=== PATIENT | male | born 1940 | race Caucasian/White ===

== ENCOUNTER 2018-04-25 19:01 | Inpatient (IN) | payer MEDICARE ==
--- NOTE | 2018-04-25 21:40 | ULT ---
RIGHT UPPER QUADRANT ULTRASOUND: 04/25/18 INDICATION: Increased blood pressure and patient not feeling well. COMPARISON: CT of the abdomen and pelvis from [facility] dated 04/25/18. FINDINGS: There is mild distention of the gallbladder with gallbladder wall thickening and pericholecystic amelia a. No sonographic Milian's sign is reported. The common bile duct measured up to 8.6 mm which is prominent. The pancreas is obscured. The right ki dney measures 10.4 cm in length. No hydronephrosis is evident. No focal hepatic lesion is noted. IMPRESSION: 1. Gallbladder distention without visible stones. There is gallbladder wall thickening and peric holecystic edema. No sonographic Milian's sign is reported. Findings are equivocal for acute acalculo us cholecystitis. Recommend correlation with the patient's clinical examination. 2. Dilatation of the common bile duct up to 8.6 mm is slightly more pronounced for age. A distal obstructing process within the common bile cannot be entirely excluded. No definite intrahepatic jesse iary ductal dilatation is noted. 3. If clinically indicated, further evaluation with an MRCP may be helpful to evaluate the dista l common bile duct. No visible stone or obstructing process is evident on the recent CT examination d ated 04/25/18. Alternatively, HIDA scan may be helpful to evaluate for cystic duct obstruction as wel l as common bile duct obstruction. POS: [facility]
[2018-04-25] MEDS ORDERED: Ondansetron PF 4 MG/2 ML Vial IVP PRN (22:58)
[2018-04-25] MEDS ORDERED: Dextrose 50% Abboject 50 ML SYRINGE SLOW IVP PRN (22:58)
[2018-04-25] MEDS ORDERED: HumaLOG 300 UNITS/3 ML VIAL SC PRN (22:58)
[2018-04-25] MEDS ORDERED: Dextrose 5% in Water 1,000 ML IV PRN (22:58)
[2018-04-25] MEDS ORDERED: hydrALAZINE 20 MG/ML VIAL SLOW IVP PRN (22:58)
[2018-04-25] MEDS ORDERED: Ondansetron ODT 4 MG TAB PO PRN (22:58)
--- NOTE | 2018-04-25 23:58 | RAD ---
TWO VIEWS CHEST 04/25/18 HISTORY: COPD. PA and lateral views of the chest is obtained. Cardiomegaly seen. Pulmonary vascular congestion is se en. No evidence of effusions, pneumonia or pneumothorax seen. IMPRESSION: Cardiomegaly and pulmonary vascular congestion. POS: [facility]
[2018-04-26] MEDS: Piperacillin/Tazobactam 3.375 GM in Sodium Chloride 0.9% 100 ML IVPB SCH ×5 (00:15→23:54)
[2018-04-26] MEDS: Lactated Ringer's 1,000 ML IV SCH ×3 (00:15→17:18)
[2018-04-26 00:25] LABS: HBCM Index 0.07 S/CO (0-0.79); Hep A IgM AB Non-Reactive (NonReactive); Hep A IgM S/CO 0.09 S/CO (0-0.79); Hep B Surf Ag Non-Reactive S/CO (NonReactive); Hep C IgG Ab Non-Reactive (NonReactive); Hep C Index 0.16 S/CO (0-0.79); Hepatitis B Core IgM Abs Non-Reactive (NonReactive)
[2018-04-26 01:46] VITALS: BMI 35.6
--- NOTE | 2018-04-26 04:11 | HP ---
HISTORY OF PRESENT ILLNESS: A 77-year-old male from [place]. He has worked for [employer], he is retired. He apparently presented to the hospital last , Danica adair for hypertension, medically controlled. He then reported again today for chills. He was noted to have abnormal liver function test, bilirubin 2.2, alk phos 240, AST 848, ALT 472. White count 4, hemoglobin 12. He had a CAT scan of abdomen and pelvis noted lumbar ORIF hardware, pericholecystic fluid, distended gallbladder, dilated bile duct. He was transferred to [facility] where he underwent an ultrasound of an 8.6 mm bile duct. Negative sonographic Milian sign and no gallstones. Patient denies any past history of biliary symptoms. He reports he has had some mild nausea, but no other really symptoms. He has had normal colonoscopies in the past. ALLERGIES: CLINDAMYCIN, CELEBREX. TOBACCO: None since 1989. ALCOHOL: Rarely. MEDICATIONS: Metformin 500 b.i.d., atorvastatin 40 mg a day, Tylenol PM, Demadex 100 mg 1/2 tab p.r. n. leg swelling, Tylenol p.r.n., Centrum Silver, aspirin 81 mg daily, acid 40 mg a day, metform in 500 b.i.d., Spiriva handihaler every day for COPD, fluticasone nasal spray, CoQ10, fish oil, lactu lose 10 mg a day, MiraLax daily, fiber powder daily. PAST SURGICAL HISTORY: Prostatectomy, bilateral total knee replacements, lumbar surgery, ORIF, colonoscopy last year was normal. PAST MEDICAL HISTORY: Coronary artery disease, myocardial infarction in 2004, coronary artery stent placed, [facility] 2014, saw his casing trimmer, had a stress test that was normal. He is asympt omatic from a cardiac standpoint. Apparently, he had an echocardiogram yesterday in [place] report ing normal ejection fraction. Preliminary report, I do not have that, this is reported in the ER rec ords. No prior history of hypertension until when he was started on apparently clonidine. COPD. He does not use inhalers at home. Sleep apnea. He wears a CPAP. Diabetes mellitus type 2. History of prostate cancer. PHYSICAL EXAMINATION: VITAL SIGNS: Temperature 37.9, pulse 94, respiratory rate 18, blood pressure 114/62, oxygen saturati on 97%. HEENT: Unremarkable. Sclerae nonicteric. SKIN: Nonjaundiced. LUNGS: Clear to auscultation, no wheezing. CARDIAC: Regular rate and rhythm without murmur or gallop. ABDOMEN: Soft, distended, protuberant, nontender. Suprapubic midline incision consistent with prost atectomy. EXTREMITIES: Unremarkable. LABORATORIES: As noted above. ASSESSMENT AND PLAN: 1. History of chills, currently afebrile, dilated common bile duct 8.6 mm, elevated bilirubin and tr ansaminases. We will consult Gastroenterology, Dr. Peterson and discuss this case with him. We will o btain a HIDA scan tomorrow without ejection fraction. We will repeat his liver function tests. We w ill keep him on antibiotics in case there is early cholangitis. We will make further recommendations pending studies. He may need an ERCP. Possibly, cholecystectomy is uncertain at this time. 2. Diabetes mellitus type 2. Accu-Cheks. 3. Coronary artery disease, stable. He has appointment to see a casing trimmer in the next few days t o a week encouraged by his primary care physician, Dr. Aguilar in [place] to follow up his coronary art douglas disease, asymptomatic from a cardiac standpoint. 4. Sleep apnea. 5. Chronic obstructive pulmonary disease. 6. History of tobacco abuse. 7. Status post open reduction and internal fixation of lumbar spine.
[2018-04-26 05:15] LABS: #Lymphocytes 0.6 thou/uL (1.20-3.40); #Monocytes 0.6 thou/uL (0.11-0.59); #Neutrophils 10.4 thou/uL (1.40-6.50); %Basophils 0.3 % (0.0-1.0); %Eosinophils 0.2 % (0.0-10.0); %Lymphocytes 5.1 % (21.0-51.0); %Monocytes 4.9 % (0.0-10.0); %Neutrophils 89.5 % (42.0-75.0); Hemoglobin 11.5 g/dL (14.0-18.0); Mean Corpuscular HGB CONC 32.9 g/dL (32.0-36.0); Mean Corpuscular Hemoglobin 31.8 pg (27.0-31.0); Mean Corpuscular Volume 96.7 fL (78.0-98.0); Mean Platelet Volume 7.4 fL (7.4-10.4); Platelet Count 136 thou/uL (130-400); RBC Distribution Width 12.1 % (11.5-14.5); Red Blood Cell (RBC) Count 3.62 mill/uL (4.70-6.10); White Blood Cell (WBC) Count 11.6 thou/uL (4.8-10.8)
[2018-04-26 05:18] LABS: INR-International Normal Ratio 1.2; PTT 28.6 SEC (22.9-36.1); Prothrombin Time 14.8 SEC (12.0-14.7)
[2018-04-26 05:30] LABS: ALT (SGPT) 992 U/L (8-55); AST (SGOT) 950 U/L (5-34); Albumin 3.5 g/dL (3.4-4.8); Alkaline Phosphatase 214 U/L (40-150); Anion Gap 13 mmol/L (10-20); BUN (Urea Nitrogen) 28 mg/dL (8.4-25.7); Bilirubin, Total 3.8 mg/dL (0.2-1.2); Calc. Creatinine Clearance 50 mL/min (70-130); Calcium 8.6 mg/dL (7.8-10.44); Carbon Dioxide 22 mmol/L (23-31); Chloride 107 mmol/L (98-107); Estimated GFR-MDRD 33; Globulin 2.7 g/dL (2.4-3.5); Glucose 129 mg/dL (83-110); Potassium 4.1 mmol/L (3.5-5.1); Protein, Total 6.2 g/dL (5.8-8.1); Sodium 138 mmol/L (136-145)
[2018-04-26] MEDS: Famotidine/PF 20 mg/2ml Vial SLOW IVP SCH ×2 (09:13→21:36)
[2018-04-26] MEDS ORDERED: Glycopyrrolate 0.2 MG/ML 5 ML SYRINGE ONE (13:50)
[2018-04-26] MEDS ORDERED: PROPOFOL 200 MG/20 ML VIAL ONE (13:50)
[2018-04-26] MEDS ORDERED: PHENYLEPHRINE-NS 100 MCG/ML 10 ML SYRINGE ONE (13:50)
[2018-04-26] MEDS ORDERED: Lidocaine 1% PF 5 ML VIAL ONE (13:50)
[2018-04-26] MEDS ORDERED: Ondansetron PF 4 MG/2 ML Vial ONE (13:50)
--- NOTE | 2018-04-26 13:52 | CON ---
DATE OF CONSULTATION: 04/26/2018 HISTORY OF PRESENT ILLNESS: The patient is a 77-year-old gentleman who was in his normal state of he alth until one day prior to admission when he developed significant fever and chills. He did have so me nausea and vomiting but denies any recent weight loss. It was noted he had a distended gallbladde r and some pericholecystic fluid and had a gallbladder without stones. Common bile duct was somewhat dilated. He denies much pain. PAST MEDICAL HISTORY: Significant for diabetes mellitus, coronary artery disease, myocardial infarct ion, coronary artery stent placement, COPD, sleep apnea, prostate cancer. PAST MEDICAL HISTORY: Prostatectomy, total knee replacement, lumbar surgery, ORIF, colonoscopy. MEDICATIONS: Included Uloric 1 p.o. daily, aspirin 1 p.o. daily, eyedrops, fish oil 1 capsule p.o. b .i.d., multivitamin 1 p.o. daily, Demadex 50 mg p.o. daily, Spiriva 1 spray every day, CoQ10 one p.o. daily, Catapres 0.1 mg p.o. t.i.d. p.r.n., metformin 500 mg p.o. b.i.d., atorvastatin 40 mg p.o. at bedtime. ALLERGIES: Include CELEBREX and CLINDAMYCIN. SOCIAL HISTORY: Does not smoke or drink. FAMILY HISTORY: Negative for GI or liver disease. PHYSICAL EXAMINATION: CONSTITUTIONAL: Positive for fever and chills. Negative for weight loss. EYES: No blurred vision or double vision. ENT: No sore throat or earaches. CARDIOVASCULAR: No chest pain or palpitations. PULMONARY: No shortness of breath, cough, or wheeze. GI: See above. : No hematuria or dysuria. MUSCULOSKELETAL: No joint pain or muscle weakness. SKIN: No rashes. NEUROLOGIC: No numbness or seizure activity. PHYSICAL EXAMINATION: GENERAL: Shows a well-developed, well-nourished white male, in no acute distress. VITAL SIGNS: Temperature 97.9, pulse 73, respiratory rate 20, blood pressure 138/76. HEENT: Unremarkable. NECK: Supple. CHEST: Clear. CARDIOVASCULAR: Regular rate and rhythm. ABDOMEN: Soft, nontender, without organomegaly or masses. EXTREMITIES: Normal. NEUROLOGIC: Nonfocal. LABORATORY DATA: Shows a white blood cell count of 11.6, hemoglobin 11.5, hematocrit 35.1. PT is 14 .8 with an INR of 1.2. Chemistries significant for CO2 of 22, BUN 28, creatinine 1.96, glucose 129, total bilirubin , AST 958, ALT 992, alkaline phosphatase 214. Hepatitis panel was negative. Ab dominal ultrasound shows gallbladder distention without visible stones. The wall is thickened with p ericholecystic edema, dilatation of the common bile duct up to 8.6 mm in size. ASSESSMENT: 1. Acute cholecystitis. 2. Cholestasis with enlarged common bile duct - this may be red cells all secondary to the patient's acute cholecystitis or he may indeed have common duct stones. I think the best approach at this blank e would be to proceed with cholecystectomy and then perform an intraoperative cholangiogram. RECOMMENDATIONS: Proceed with cholecystectomy followed by intraoperative cholangiogram and if needed ERCP.
--- NOTE | 2018-04-26 15:24 | NM ---
HEPATOBILIARY SCAN: Date: 04/26/18 HISTORY: Elevated LFTs, fever, chills, and vomiting. Abnormal right upper quadrant ultrasound. RADIOPHARMACEUTICAL: 5.2 mCi technetium-99m mebrofenin injected intravenously. FINDINGS/IMPRESSION: There is tracer extraction by the liver without excretion into the biliary tract/small bowel loops, o r filling of the gallbladder at 1 hour post injection. The exam was terminated and the patient was taken to surgery. Delayed images could not be obtained. T he possibility of biliary obstruction or acute cholecystitis cannot be excluded on this study. POS: [facility]
--- NOTE | 2018-04-26 15:46 | PRG ---
DATE OF SERVICE: 04/26/2018 Osvaldo Rizo Jr. today, still is not having much pain. He has been afebrile overnight. His vital sig ns are normal, 73, 138/76. This morning his white count 11, hemoglobin 11.5. His bilirubin is up to 3.8. AST, ALT 59 and 92 respectfully. Patient had his HIDA scan with nonvisualization of the gallb ladder and no epinephrine into the GI tract. Abdomen is soft. The patient denies having any pain. I have discussed with Dr. Akin Hartmann, who has seen him for Gastroenterology and will plan laparoscopi c cholecystectomy and cholangiogram today Dr. Hartmann will be available to do an ERCP. Risks and benefits of procedure explained. He consents.
[2018-04-26] MEDS ORDERED: Ondansetron HCl/PF 4 MG/2 ML Vial IVP PRN (15:54)
[2018-04-26] MEDS ORDERED: Fentanyl 100 MCG/2 ML VIAL ONE ×5 (16:04→20:20)
[2018-04-26] MEDS ORDERED: Bupivacaine HCl 0.5%/Epinephrine 1:200,000/PF 30 ml Vial ONE (16:37)
[2018-04-26] MEDS ORDERED: Iothalamate Meglumine 60% 50 ML VIAL FS ONE (16:37)
[2018-04-26] MEDS ORDERED: Lidocaine 2% Jelly 5 ML TUBE ONE (16:46)
[2018-04-26] MEDS ORDERED: SUGAMMADEX SODIUM 200 MG/2 ML VIAL ONE (18:35)
[2018-04-26] MEDS ORDERED: Acetaminophen 500 MG TAB PO PRN ×3 (18:42→18:45)
[2018-04-26] MEDS ORDERED: Ketorolac Tromethamine 30 MG/ML VIAL IVP PRN (18:42)
[2018-04-26] MEDS ORDERED: Acetaminophen 1,000 MG in Premix Bag 1 BAG IVPB PRN (18:42)
[2018-04-26] MEDS ORDERED: Ibuprofen 800 MG TAB PO PRN (18:42)
[2018-04-26] MEDS ORDERED: traMADol HCl 50 MG TAB PO PRN (18:42)
[2018-04-26] MEDS ORDERED: Ondansetron ODT 8 MG TAB PO PRN ×2 (18:45)
[2018-04-26] MEDS ORDERED: Nitroglycerin 0.4 MG TAB (25 Tab Bottle) SL PRN (18:45)
[2018-04-26] MEDS ORDERED: Ondansetron ORAL SOLN. 4 MG/5 ML UDCUP PO PRN (18:45)
[2018-04-26] MEDS ORDERED: Ondansetron ODT 8 MG TAB SL PRN (18:45)
[2018-04-26] MEDS ORDERED: cloNIDine 0.1 MG TAB PO PRN (18:45)
[2018-04-26] MEDS ORDERED: diphenhydrAMINE 25 MG CAP PO PRN (20:14)
[2018-04-26] MEDS ORDERED: ALPHA LIPOIC ACID PO SCH (21:00)
--- NOTE | 2018-04-26 21:23 | OP ---
DATE OF PROCEDURE: 04/26/2018 PREOPERATIVE DIAGNOSES: Acute cholecystitis. No stones on ultrasound and CAT scan, thickened gallbl adder wall, pericholecystic fluid, negative sonographic Milian sign, 8.6 mm common bile duct on ultra sound, elevated liver function test, bilirubin of 3.6. Transaminases elevated, negative viral serolo gy. POSTOPERATIVE DIAGNOSES: Acute cholecystitis. No stones on ultrasound and CAT scan, thickened gallb ladder wall, pericholecystic fluid, negative sonographic Milian sign, 8.6 mm common bile duct on ultr asound, elevated liver function test, bilirubin of 3.6. Transaminases elevated, negative viral serol ogy. PROCEDURES: Laparoscopic video cholecystectomy, negative cholangiogram. SURGEON: Dr. Royce Noonan. ANESTHESIA: General. Local 0.5% Marcaine with epinephrine. PROCEDURE IN DETAIL: Patient was taken to the operating room where under general anesthesia, abdomen was prepared with ChloraPrep, draped in routine fashion. Supraumbilical incision made. Pneumoperit oneum to 15 mmHg obtained with the Veress needle, replacing it with a 5 port and video laparoscope in serted. Right subxiphoid incision made and 11 port placed. Right subcostal incision made, mid clavi cular anterior axillary lines and 5 ports placed. Gallbladder was distended, thickened wall, [place] us, fundus grasped, and reflected cephalad. Infundibulum of the gallbladder grasped and reflected la terally. Cystic artery and duct dissected free with great difficulty due to the morbid obesity and l arge gallbladder and firm liver. Liver, however, appeared normal without cirrhosis. Cystic artery d issected free, double clipped proximally. Cystic duct singly clipped on the gallbladder side. Openi ng made, cholangiocath inserted, and cholangiogram was obtained using fluoroscopy revealing free flow of contrast into the duodenum without a filling defect in the dilated common hepatic, common bile du ct, left and right hepatic ducts. Cholangiocath removed. Cystic duct stump doubly clipped. Cystic artery and duct divided. Gallbladder dissected free. Liver bed obtaining good hemostasis using caut douglas and Vimal. Gallbladder removed and submitted to Pathology. Good hemostasis ensured. Irrigant and pneumoperitoneum evacuated. All this instruments removed and all skin incisions approximated wit h interrupted subdermal 4-0 Monocryl and DermaGlue applied.
--- NOTE | 2018-04-26 21:24 | RAD ---
INTRAOPERATIVE CHOLANGIOGRAM TWO VIEWS ABDOMEN: 04/26/18 Two intraoperative images obtained and demonstrate catheterization and injection of the cystic duct. There is free flow of contrast into the common bile duct and common hepatic ducts. Spill is seen into the duodenum. There is a retrograde migration also in the distal pancreatic duct. The distal common bile duct is moderately dilated. No definite evidence of filling defect seen to suggest residual gall stones in the biliary system. IMPRESSION: Intraoperative cholangiogram. POS: [facility]
[2018-04-26] MEDS: Enoxaparin Sodium 40 MG/0.4 ML SYRINGE SC SCH (21:36)
[2018-04-26] MEDS: Ketorolac Tromethamine 0.5% Ophth Soln 3 ml Bottle EA EYE SCH (21:37)
[2018-04-26] MEDS: Fish Oil 1,000 MG CAP PO SCH (21:51)
[2018-04-27] MEDS: Lactated Ringer's 1,000 ML IV SCH ×3 (00:03→18:31)
[2018-04-27] MEDS: Ipratropium Bromide 2.5 ml Neb NEB SCH ×2 (00:47→07:41)
[2018-04-27 04:14] LABS: ALT (SGPT) 610 U/L (8-55); AST (SGOT) 396 U/L (5-34); Albumin 3.1 g/dL (3.4-4.8); Alkaline Phosphatase 175 U/L (40-150); Anion Gap 12 mmol/L (10-20); BUN (Urea Nitrogen) 32 mg/dL (8.4-25.7); Calc. Creatinine Clearance 49 mL/min (70-130); Calcium 8.5 mg/dL (7.8-10.44); Carbon Dioxide 26 mmol/L (23-31); Chloride 107 mmol/L (98-107); Estimated GFR-MDRD 33; Globulin 2.7 g/dL (2.4-3.5); Glucose 165 mg/dL (83-110); Protein, Total 5.8 g/dL (5.8-8.1); Sodium 141 mmol/L (136-145)
[2018-04-27 04:19] LABS: Band 33 % (5-11); Hemoglobin 10.5 g/dL (14.0-18.0); Lymphocytes 14 % (21-51); MDiff Complete? YES; Mean Corpuscular HGB CONC 33.5 g/dL (32.0-36.0); Mean Corpuscular Hemoglobin 32.4 pg (27.0-31.0); Mean Corpuscular Volume 96.8 fL (78.0-98.0); Mean Platelet Volume 8.1 fL (7.4-10.4); Monocytes 6 % (0-10); Neutrophil 47 % (42-75); PLT Morphology Comment Appears Adequate; Platelet Count 127 thou/uL (130-400); RBC Distribution Width 12.1 % (11.5-14.5); Red Blood Cell (RBC) Count 3.24 mill/uL (4.70-6.10); White Blood Cell (WBC) Count 9.4 thou/uL (4.8-10.8)
[2018-04-27] MEDS: Piperacillin/Tazobactam 3.375 GM in Sodium Chloride 0.9% 100 ML IVPB SCH ×3 (05:35→18:30)
--- NOTE | 2018-04-27 08:21 | PRG ---
DATE OF SERVICE: 04/27/2018 HISTORY OF PRESENT ILLNESS: Mr. Rizo is doing well this morning. He was sent to [facility] because of h ypertension and some respiratory difficulty. This morning; however, he is doing well. He has sleep apnea, he uses CPAP at home. This morning he is without oxygen and is saturating appropriately. The patient ambulates independently at home, goes to the gym 3 days a week at home. VITAL SIGNS: This morning, 97.7 degrees, heart rate 95, 149/95. The patient had an echocardiogram in [place] prior to this admission and preliminary report was a 6 5% ejection fraction with a formal report pending. LABORATORY: This morning his sodium is 141, potassium 4.0, BUN 32, creatinine 1.99, GFR 33. Accu-Ch eks 170 to 158. Bilirubin is elevated to 4.0, AST 396, ALT 610, and alkaline phosphatase 175. The patient denies having any nausea or vomiting. He is hungry. White count is 9.4, hemoglobin 10.5 . LUNGS: Clear to auscultation. CARDIAC: Regular rate and rhythm without murmur or gallop. ABDOMEN: Soft, baseline protuberance. Surgical wound is well healed. ASSESSMENT AND PLAN: 1. Diabetes mellitus. He has asked that his Accu-Cheks not be done so often as he only does these o nce a week at home. We will change his Accu-Cheks to a.c. and at bedtime. His liver function tests are elevated, slightly worse today, postoperatively which may be appropriate. His cholangiograms wer e normal. Viral serology, hepatitis profile negative. We will await GI opinion, most likely he may have some diastolic dysfunction and mild hepatic congestion, may be contributing along with acute cho lecystitis, although he did not have a gangrenous gallbladder. 2. Mild acute kidney injury. Continue hydration, repeat labs tomorrow. We will consult Medicine. We did consult Pulmonary Medicine last night because of his BiPAP needs and sleep apnea and periopera tive care. Expect discharge in the next 1 or 2 days. We will transfer to the surgical floor.
[2018-04-27] MEDS: Torsemide 100 MG TAB PO SCH (08:56)
[2018-04-27] MEDS: Febuxostat 40 MG TAB PO SCH (08:57)
[2018-04-27] MEDS: Atorvastatin Calcium 40 MG TAB PO SCH (08:57)
[2018-04-27] MEDS: Multivitamin W/ Minerals 1 TAB PO SCH (08:57)
[2018-04-27] MEDS: metFORMIN 500 MG TAB PO SCH ×2 (08:57→16:42)
[2018-04-27] MEDS: Aspirin 81 mg Enteric Coated Tablet PO SCH (08:57)
[2018-04-27] MEDS: Fish Oil 1,000 MG CAP PO SCH ×2 (08:57→20:23)
[2018-04-27] MEDS: Ketorolac Tromethamine 0.5% Ophth Soln 3 ml Bottle EA EYE SCH ×3 (09:00→20:23)
[2018-04-27] MEDS ORDERED: Spiriva 18 MCG CAP (Box of 5 Caps) INH SCH (09:00)
[2018-04-27] MEDS: Famotidine/PF 20 mg/2ml Vial SLOW IVP SCH ×2 (09:01→20:23)
[2018-04-27] MEDS: traMADol HCl 50 MG TAB PO PRN ×2 (09:06→16:43)
--- NOTE | 2018-04-27 09:15 | PRG ---
DATE OF SERVICE: 04/27/2018 SUBJECTIVE: The patient is feeling better today. He is tolerating his diet. He is somewhat sore, b ut no other complaints. OBJECTIVE: VITAL SIGNS: Temperature 97.7, pulse 95, respiratory rate 17, blood pressure 149/95. CHEST: Clear. CARDIOVASCULAR: Regular rate and rhythm. ABDOMEN: Soft, tender in right upper quadrant. EXTREMITIES: Normal. LABORATORY DATA: Shows hemoglobin 10.5, hematocrit 31.4, total bilirubin is 4.0. AST is 396, ALT is 610, alkaline phosphatase is 175. ASSESSMENT: 1. Cholestasis - I think is probably more related to the patient's underlying sepsis and illness rat her than a common bile duct stone. 2. Status post cholecystectomy. RECOMMENDATIONS: 1. Repeat LFTs in a.m. 2. Dr. Esquivel covering, call if needed.
[2018-04-27] MEDS: Ubidecarenone 50 MG CAP PO SCH (09:24)
--- NOTE | 2018-04-27 11:23 | PDOC.PN ---
- Subjective Encounter Start Date: 04/27/18 Encounter Start Time: 11:26 -: old records requested/rev pt is admitted for acute cholecystitis, he had lap ritchie done today consulted for medical management he has seen by pulmonary for dyspnea pt states that he has CKD now he had abdominal pain, has not had BM today feels like gas pain has dyspnea - Objective Resuscitation Status: Resuscitation Status FULL:Full Resuscitation MAR Reviewed: Yes Vital Signs & Weight: Vital Signs (12 hours) Temp Pulse Resp BP Pulse Ox 04/27/18 07:46 97.7 F 95 17 149/95 H 100 04/27/18 07:43 100 04/27/18 07:41 88 18 100 04/27/18 04:00 98.3 F 97 22 H 151/80 H 97 04/27/18 01:00 99.7 F H 100 20 120/62 100 04/27/18 00:49 99 15 100 04/27/18 00:47 99 16 100 04/27/18 00:00 100 04/26/18 23:57 102.6 F H 96 20 161/78 H 100 Weight Weight 264 lb I&O: 04/26/18 04/27/18 04/28/18 06:59 06:59 06:59 Intake Total 3016 904 3989 Output Total 350 300 Balance 906 572 2472 Result Diagrams: 04/27/18 03:31 04/27/18 03:31 Additional Labs: Accuchecks 04/27/18 04/27/18 04/26/18 06:05 00:58 20:46 POC Glucose 158 H 157 H 170 H 04/26/18 11:08 POC Glucose 167 H Radiology Reviewed by me: Yes (US abdomen, HIDA scan reviewed) EKG Reviewed by me: Yes (NSR) Phys Exam - Physical Examination Constitutional: NAD HEENT: PERRLA, moist MMs, sclera anicteric Neck: no JVD, supple Respiratory: no rales, wheezing present Cardiovascular: RRR, no significant murmur, no rub Gastrointestinal: soft, non-tender, no distention, positive bowel sounds surgical site clean Musculoskeletal: pulses present, edema present Neurological: non-focal, normal sensation, moves all 4 limbs Lymphatic: no nodes Psychiatric: normal affect, A&O x 3 Skin: no rash, normal turgor Dx/Plan (1) Acute cholecystitis Code(s): K81.0 - ACUTE CHOLECYSTITIS Status: Acute (2) Abnormal LFTs Code(s): R94.5 - ABNORMAL RESULTS OF LIVER FUNCTION STUDIES Status: Acute Comment: due to problem 1 (3) S/P laparoscopic cholecystectomy Code(s): Z90.49 - ACQUIRED ABSENCE OF OTHER SPECIFIED PARTS OF DIGESTIVE TRACT Status: Acute (4) Thrombocytopenia Code(s): D69.6 - THROMBOCYTOPENIA, UNSPECIFIED Status: Acute (5) Anemia, normocytic normochromic Code(s): D64.9 - ANEMIA, UNSPECIFIED Status: Chronic (6) COPD (chronic obstructive pulmonary disease) Status: Chronic (7) Diabetes type 2, controlled Code(s): E11.9 - TYPE 2 DIABETES MELLITUS WITHOUT COMPLICATIONS Status: Chronic (8) Dyslipidemia Code(s): E78.5 - HYPERLIPIDEMIA, UNSPECIFIED Status: Chronic (9) Gout Code(s): M10.9 - GOUT, UNSPECIFIED Status: Chronic (10) Hypertension Code(s): I10 - ESSENTIAL (PRIMARY) HYPERTENSION Status: Chronic (11) IRAM on CPAP Code(s): G47.33 - OBSTRUCTIVE SLEEP APNEA (ADULT) (PEDIATRIC); Z99.89 - DEPENDENCE ON OTHER ENABLING MACHINES AND DEVICES Status: Chronic (12) Obesity (BMI 30-39.9) Code(s): E66.9 - OBESITY, UNSPECIFIED Status: Chronic (13) CKD (chronic kidney disease) stage 3, GFR 30-59 ml/min Code(s): N18.3 - CHRONIC KIDNEY DISEASE, STAGE 3 (MODERATE) Status: Chronic - Plan cont current plan of care, plan discussed w/ family, continue antibiotics, incentive spirometry, DVT proph w/lovenox * will DC toradol for his KODI * discontinue IVF * check urinalysis, urine sodium, creatinine and protein * medication reviewed as below * symptomatic treatment. * CPAP during night * respiratory therapy * medication reviewed as below * symptomatic treatment * hyperglycemia protocol * ambulate as tolerated * repeat labs tomorrow * CODE STATUS- FULL CODE Review of Systems - Review of Systems Eyes: negative: Pain, Vision Change, Conjunctivae Inflammation, Eyelid Inflammation, Redness, Other Respiratory: Shortness of Breath, SOB with Excertion. negative: Cough, Dry, Hemoptysis, Pleuritic Pain, Sputum, Wheezing Cardiovascular: edema. negative: chest pain, palpitations, orthopnea, paroxysmal nocturnal dyspnea, light headedness, other Gastrointestinal: Abdominal Pain. negative: Nausea, Vomiting, Diarrhea, Constipation, Melena, Hematochezia, Other Genitourinary: negative: Dysuria, Frequency, Incontinence, Hematuria, Retention , Other Musculoskeletal: negative: Neck Pain, Shoulder Pain, Arm Pain, Back Pain, Hand Pain, Leg Pain, Foot Pain, Other Skin: negative: Rash, Lesions, Brian, Bruising, Other - Medications/Allergies Allergies/Adverse Reactions: Allergies Allergy/AdvReac Type Severity Reaction Status Date / Time celecoxib [From Celebrex] Allergy Verified 04/25/18 23:11 clindamycin Allergy Verified 04/26/18 04:00 Medications: Current Medications Acetaminophen (Tylenol) 1,000 mg PO Q6H PRN PRN Reason: Moderate to Severe Pain (6-10) Acetaminophen (Tylenol) 1,000 mg PO HSPRN PRN PRN Reason: Insomnia Albuterol/Ipratropium (Duoneb) 3 ml NEB Q4H PRN PRN Reason: Wheezing Albuterol/Ipratropium (Duoneb) 3 ml NEB [id number] [facility] Aspirin (Ecotrin) 81 mg PO DAILY [facility] Last Admin: 04/27/18 08:57 Dose: 81 mg Atorvastatin Calcium (Lipitor) 40 mg PO DAILY [facility] Last Admin: 04/27/18 08:57 Dose: 40 mg Clonidine (Catapres) 0.1 mg PO TID PRN PRN Reason: Hypertension Coenzyme Q10 (Coenzyme Q10) 200 mg PO DAILY [facility] Last Admin: 04/27/18 09:24 Dose: 200 mg Dextrose/Water (Dextrose 50%) 25 gm SLOW IVP PRN PRN PRN Reason: Hypoglycemia Diphenhydramine HCl (Benadryl) 50 mg PO HSPRN PRN PRN Reason: Insomnia Enoxaparin Sodium (Lovenox) 40 mg SC 2100 [facility] Last Admin: 04/26/18 21:36 Dose: 40 mg Famotidine (Pepcid) 20 mg SLOW IVP Q12HR [facility] Last Admin: 04/27/18 09:01 Dose: 20 mg Febuxostat (Uloric) 40 mg PO DAILY [facility] Last Admin: 04/27/18 08:57 Dose: 40 mg Fish Oil (Fish Oil) 1,000 mg PO BID [facility] Last Admin: 04/27/18 08:57 Dose: 1,000 mg Glucagon (Glucagon) 1 mg IM PRN PRN PRN Reason: Hypoglycemia Hydralazine HCl (Apresoline) 10 mg SLOW IVP Q4H PRN PRN Reason: SBP > 170 or DBP > 100 Dextrose/Water (D5w) 1,000 mls @ 0 mls/hr IV .Q0M PRN PRN Reason: Hypoglycemia Lactated Ringer's (Lactated Ringer's) 1,000 mls @ 120 mls/hr IV .Q8H20M [facility] Last Admin: 04/27/18 05:07 Dose: 1,000 mls Piperacillin Sod/Tazobactam (Sod 3.375 gm/ Sodium Chloride) 100 mls @ 200 mls/ hr IVPB Q6HR [facility] Last Admin: 04/27/18 05:35 Dose: 100 mls Acetaminophen 1,000 mg/ Device 100 mls @ 400 mls/hr IVPB Q6H PRN PRN Reason: Fever/Mild Pain 1-3 Stop: 04/27/18 18:43 Last Admin: 04/26/18 23:31 Dose: 100 mls Insulin Human Lispro (Humalog) 0 units SC .MODERATE SLIDING SC PRN PRN Reason: Moderate Correctional Scale Iron/Minerals/Multivitamins (Theragran M) 1 tab PO DAILY [facility] Last Admin: 04/27/18 08:57 Dose: 1 tab Ketorolac Tromethamine (Acular 0.5% Ophth Soln) 1 drop EA EYE TID [facility] Last Admin: 04/27/18 09:00 Dose: 1 drop Lactulose (Lactulose) 10 gm PO BIDPRN PRN PRN Reason: Constipation Metformin HCl (Glucophage) 500 mg PO BID-WM [facility] Last Admin: 04/27/18 08:57 Dose: 500 mg Mometasone Furoate/Formoterol Fumar (Dulera 200 Mcg/5 Mcg Inhaler) 2 puff INH BID-RT [facility] Nitroglycerin (Nitrostat) 0.4 mg SL PRN PRN PRN Reason: SOB or Anxiety Ondansetron HCl (Zofran Odt) 4 mg PO Q6H PRN PRN Reason: Nausea/Vomiting Ondansetron HCl (Zofran) 4 mg IVP Q6H PRN PRN Reason: Nausea Ondansetron HCl (Zofran Odt) 8 mg PO Q6H PRN PRN Reason: Nausea/Vomiting Sodium Chloride (Flush - Normal Saline) 10 ml IVF PRN PRN PRN Reason: Saline Flush Last Admin: 04/26/18 21:36 Dose: 10 ml Torsemide (Demadex) 50 mg PO DAILY [facility] Last Admin: 04/27/18 08:56 Dose: 50 mg Tramadol HCl (Ultram) 50 mg PO Q6H PRN PRN Reason: Mild-Moderate Pain (1-5) Tramadol HCl (Ultram) 100 mg PO Q6H PRN PRN Reason: Moderate to Severe Pain (6-10) Last Admin: 04/27/18 09:06 Dose: 100 mg
--- NOTE | 2018-04-27 11:44 | CON ---
DATE OF CONSULTATION: 04/27/2018 HISTORY OF PRESENT ILLNESS: Mr. Osvaldo Rizo is a 77-year-old morbidly obese gentleman who was admitt ed to the hospital on 04/25/2018. He is from [place]. Apparently, he presented with abnormal live r function and vomiting, abdominal pain. He was found to have acute cholecystitis, underwent laparoscopic, gallbladder removed. Postop, he was in the MICU, reason for consultation. He tells me he sees a physician chief of pathology in [place] with a diagnosis of sleep apnea and chronic obstructive pulmonary disease. He is a former smoker , quit smoking in 1989. It is relatively active. Postop, he is doing well, just coughing and choking right now. No fever or chills. PAST MEDICAL HISTORY: COPD, sleep apnea, hypertension, macular degeneration, prostate issues. PAST SURGICAL HISTORY: Bilateral knee, leg surgery, prostate, tonsillectomy, gallbladder. Alcohol as noted, quit smoking in 1989, pack a day. MEDICATIONS: From home, diabetic, metformin 500 twice a day, Catapres 0.1, CoQ 200, Demadex 50, Spir sheryl, nitroglycerin, vitamin, lactulose, ____. ALLERGIES: He is allergic to CELEBREX and CLINDAMYCIN. He is presently on nebulizer and Zosyn. SOCIAL HISTORY: He worked in several different ____, [employer], [employer]. He had asbestos exposure, but ____. PHYSICAL EXAMINATION: GENERAL: No acute distress. VITAL SIGNS: Sats are 100% on room air, respiration 17, temperature 97, pulse 95, blood pressure 149 /95. CHEST: Decreased breath sounds, no wheezing. CARDIAC: Normal S1, S2. No gallops. ABDOMEN: Soft. No masses. LABORATORY DATA: Creatinine 1.99, some of this may be prerenal since he was taking a diuretic. Whit e count 9000, H&H is 10 and 31, and platelet count is slightly decreased at 127. His liver function is elevated with an ALT of 610. Blood culture growing E. coli. IMPRESSION: 1. E. coli sepsis, cholecystitis. 2. Morbid obesity. 3. Chronic obstructive pulmonary disease. 4. Renal failure. 5. Hypertension. PLAN: Pulmonary corbett, restart home medication. Nocturnal CPAP. Early ambulation. I agree with slo w hydration. We will follow. This is a 70 minutes consultation in which 50 minutes spent in direct patient care.
[2018-04-27 13:10] LABS: Bilirubin Moderate (Negative); Blood, Urine Small (Negative); Clarity CLEAR (Clear); Glucose, Urine (Dipstick) Negative (Negative); Leukocyte Trace (Negative); Nitrite Negative (Negative); Protein, Urine (Dipstick) 30 mg/dL (Neg-Trace); Specific Gravity, Urine 1.033 (1.002-1.036); pH, Urine 5.5 (5.0-9.0)
[2018-04-27 13:13] LABS: Hyaline Casts/LPF 0-3 HYALINE CAST LPF (0-3 Hyaline); Pathc Cast-AUWi Flag 0.29 (0-2.49); Squamous Epithelial 0-3 HPF (0-3); WBC/HPF 0-3 HPF (0-3)
[2018-04-27 13:15] LABS: Yeast-AUWi Flag 56.4 (0-25.0)
[2018-04-27 13:29] LABS: Bacteria/HPF 1+ HPF (None Seen); RBC/HPF 0-3 HPF (0-3); Yeast-All Forms None Seen HPF (None Seen)
[2018-04-27 13:54] LABS: Creatinine, Urine 159.85 mg/dL (63-166); Protein, Urine Random Quant 66 mg/dL (1-14); Sodium, Urine Less than 20 mmol/L (Not Available)
[2018-04-27] MEDS: Mometasone/Formoterol 120 PUFF INHALER INH SCH (18:45)
[2018-04-27] MEDS: Enoxaparin Sodium 40 MG/0.4 ML SYRINGE SC SCH (20:23)
[2018-04-28] MEDS: Piperacillin/Tazobactam 3.375 GM in Sodium Chloride 0.9% 100 ML IVPB SCH ×2 (00:48→06:12)
[2018-04-28] MEDS: traMADol HCl 50 MG TAB PO PRN (01:41)
[2018-04-28] MEDS: Lactated Ringer's 1,000 ML IV SCH (02:33)
[2018-04-28 05:53] LABS: #Lymphocytes 0.8 thou/uL (1.20-3.40); #Monocytes 0.4 thou/uL (0.11-0.59); #Neutrophils 8.7 thou/uL (1.40-6.50); %Eosinophils 0.3 % (0.0-10.0); %Lymphocytes 8.3 % (21.0-51.0); %Monocytes 4.2 % (0.0-10.0); %Neutrophils 87.2 % (42.0-75.0); Hemoglobin 10.5 g/dL (14.0-18.0); Mean Corpuscular HGB CONC 32.7 g/dL (32.0-36.0); Mean Corpuscular Hemoglobin 32.1 pg (27.0-31.0); Mean Corpuscular Volume 98.2 fL (78.0-98.0); Mean Platelet Volume 8.3 fL (7.4-10.4); Platelet Count 125 thou/uL (130-400); RBC Distribution Width 12.2 % (11.5-14.5); Red Blood Cell (RBC) Count 3.27 mill/uL (4.70-6.10); White Blood Cell (WBC) Count 9.9 thou/uL (4.8-10.8)
[2018-04-28 06:09] LABS: ALT (SGPT) 391 U/L (8-55); AST (SGOT) 185 U/L (5-34); Albumin 3.1 g/dL (3.4-4.8); Alkaline Phosphatase 173 U/L (40-150); Anion Gap 13 mmol/L (10-20); BUN (Urea Nitrogen) 32 mg/dL (8.4-25.7); Bilirubin, Total 3.6 mg/dL (0.2-1.2); Calc. Creatinine Clearance 58 mL/min (70-130); Calcium 8.3 mg/dL (7.8-10.44); Carbon Dioxide 22 mmol/L (23-31); Chloride 104 mmol/L (98-107); Estimated GFR-MDRD 38; Globulin 2.9 g/dL (2.4-3.5); Glucose 164 mg/dL (83-110); Potassium 3.9 mmol/L (3.5-5.1); Sodium 135 mmol/L (136-145)
[2018-04-28] MEDS: Mometasone/Formoterol 120 PUFF INHALER INH SCH ×2 (06:25→19:35)
[2018-04-28] MEDS ORDERED: Polyethylene Glycol 3350 17 GM Packet PO PRN (08:02)
[2018-04-28] MEDS ORDERED: Milk Of Magnesia 30 ML UDCUP PO PRN (08:02)
[2018-04-28] MEDS: metFORMIN 500 MG TAB PO SCH (09:40)
[2018-04-28] MEDS: Aspirin 81 mg Enteric Coated Tablet PO SCH (09:40)
[2018-04-28] MEDS: Atorvastatin Calcium 40 MG TAB PO SCH (09:40)
[2018-04-28] MEDS: Torsemide 100 MG TAB PO SCH (09:40)
[2018-04-28] MEDS: Febuxostat 40 MG TAB PO SCH (09:41)
[2018-04-28] MEDS: Ubidecarenone 50 MG CAP PO SCH (09:42)
[2018-04-28] MEDS: Polyethylene Glycol 3350 17 GM Packet PO SCH (09:42)
[2018-04-28] MEDS: Multivitamin W/ Minerals 1 TAB PO SCH (09:42)
[2018-04-28] MEDS: Fish Oil 1,000 MG CAP PO SCH ×2 (09:42→21:07)
[2018-04-28] MEDS: Ketorolac Tromethamine 0.5% Ophth Soln 3 ml Bottle EA EYE SCH ×3 (09:43→21:11)
--- NOTE | 2018-04-28 10:23 | PRG ---
DATE OF SERVICE: 04/28/2018 SUBJECTIVE: Mr. Rizo is doing well today. He feels slightly bloated. He is having some belching. He has not had a bowel movement. He reports absence of bowel movements or flatus. He feels a little bloated and distended, but, howev er, does not have nausea or vomiting. He reports he does have chronic kidney disease with chronicall y elevated BUN and creatinine. OBJECTIVE: VITAL SIGNS: Temperature 97.4 degrees, 97 heart rate, 28 respiratory rate, 134/76 blood pressure, sa turations on room air this morning 88%-90%. The patient wore his CPAP last night. GENERAL: This morning, he is sitting upright and alert and oriented, appropriately interactive. LUNGS: Clear to auscultation, no wheezing, no rhonchi, no rales. CARDIAC: Regular rate and rhythm. ABDOMEN: Soft, slightly distended, slightly tympanitic, but no guarding. Surgical wounds look good. LABORATORY DATA: This morning, laboratories reveal his white count is 9 and hemoglobin 10.5, both of which are stable. His sodium is 135; potassium is 3.9; BUN 32 and creatinine 1.76, both of which ar e slightly improved with hydration. IV fluids discontinued by medical, which I agree with. He is ta renetta adequate liquids. Accu-Cheks 150 to 95, well controlled. Liver function tests slightly improve d. Bilirubin down to 3.6, AST and ALT 185 and 391. Viral hepatitis profile was negative. ASSESSMENT AND PLAN: 1. Cholestasis. At this point, we will discontinue his Zosyn, as I do not think that he needs furth er treatment with this. His liver function tests should improve with time. We will continue to foll ow these and he may be able to be discharged home later today. If he is still here tomorrow, we will check his liver function tests and BUN and creatinine. Otherwise, if he is feeling better later don bose, his nurse, Raiza, will call me. We will discharge home with Ultram p.r.n. and Tylenol p.r.n. gisel n. Resume his home medications. 2. Chronic kidney disease, probably his baseline status. 3. Cholestasis expect to improve with time. We will recheck as an outpatient. 4. Diabetes mellitus, on diabetic diet.
--- NOTE | 2018-04-28 10:34 | EKG ---
Test Reason : Blood Pressure : / mmHG Vent. Rate : 080 BPM Atrial Rate : 080 BPM P-R Int : 204 ms QRS Dur : 096 ms QT Int : 382 ms P-R-T Axes : 081 053 -11 degrees QTc Int : 440 ms Normal sinus rhythm Possible inferior ischemia Abnormal ECG No previous ECGs available Confirmed by DR. Thierno CARO ([id number]) on 04/28/2018 10:34:29 AM Referred By: EVERETT Confirmed By:DR. Thierno CARO
[2018-04-28] MEDS ORDERED: Bisacodyl 10 MG SUPP PR PRN (14:45)
--- NOTE | 2018-04-28 15:08 | PRG ---
DATE OF SERVICE: 04/28/2018 SUBJECTIVE: Doing well this morning. No shortness of breath, no cough, no wheezing. OBJECTIVE: VITAL SIGNS: Sats are 92 on room air, pulse 94, respiratory rate 18, temperature 98. His blood pres sure 120/74. CHEST: No wheezing or crackles. CARDIAC: Normal S1 and S2. No gallops. ABDOMEN: Soft, no masses. LABORATORY DATA: White count 9000, H and H 10 and 32. Electrolytes normal, creatinine 1.6. Liver f unction is still abnormal with an ALT of 391. IMPRESSION: 1. Status post cholecystectomy. 2. Chronic obstructive pulmonary disease. 3. Sleep apnea. PLAN: Home when okay with Surgery. Continue neb treatments and supportive care. Please call as nae bocanegra.
--- NOTE | 2018-04-28 17:31 | PDOC.PN ---
- Subjective Encounter Start Date: 04/28/18 Encounter Start Time: 17:27 Mr. Rizo was seen today in follow-up of medical management post Lap- ritchie. He says he feels bloated, and has not passed much gas, and does not have much of an appetite. - Objective Resuscitation Status: Resuscitation Status FULL:Full Resuscitation MAR Reviewed: Yes Vital Signs & Weight: Vital Signs (12 hours) Temp Pulse Resp BP Pulse Ox 04/28/18 16:15 98.4 F 103 H 18 133/69 95 04/28/18 14:02 88 24 H 04/28/18 11:32 97.2 F L 91 20 133/73 95 04/28/18 08:12 98.5 F 94 20 128/74 92 L 04/28/18 08:00 88 L 04/28/18 06:25 97 28 H 91 L 04/28/18 06:08 91 L 04/28/18 06:06 97 28 H 91 L Weight Weight 264 lb I&O: 04/27/18 04/28/18 04/29/18 06:59 06:59 06:59 Intake Total 730 2297 Output Total 300 Balance 430 2297 Result Diagrams: 04/28/18 05:32 04/28/18 05:32 Additional Labs: Accuchecks 04/28/18 04/28/18 04/28/18 16:08 12:14 04:19 POC Glucose 171 H 153 H 195 H 04/27/18 19:45 POC Glucose 179 H Phys Exam - Physical Examination HEENT: PERRLA Respiratory: no wheezing, no rales, no rhonchi, clear to auscultation bilateral Cardiovascular: RRR, no significant murmur, no rub Gastrointestinal: soft, non-tender Mildly distended, Bowel sounds are hypoactive Musculoskeletal: edema present trace pedal edema Neurological: non-focal, moves all 4 limbs Dx/Plan (1) Diabetes type 2, controlled Code(s): E11.9 - TYPE 2 DIABETES MELLITUS WITHOUT COMPLICATIONS Status: Chronic (2) S/P laparoscopic cholecystectomy Code(s): Z90.49 - ACQUIRED ABSENCE OF OTHER SPECIFIED PARTS OF DIGESTIVE TRACT Status: Acute (3) CKD (chronic kidney disease) stage 3, GFR 30-59 ml/min Code(s): N18.3 - CHRONIC KIDNEY DISEASE, STAGE 3 (MODERATE) Status: Chronic (4) COPD (chronic obstructive pulmonary disease) Status: Chronic (5) Gout Code(s): M10.9 - GOUT, UNSPECIFIED Status: Chronic (6) Hypertension Code(s): I10 - ESSENTIAL (PRIMARY) HYPERTENSION Status: Chronic (7) IRAM on CPAP Code(s): G47.33 - OBSTRUCTIVE SLEEP APNEA (ADULT) (PEDIATRIC); Z99.89 - DEPENDENCE ON OTHER ENABLING MACHINES AND DEVICES Status: Chronic - Plan * Diabetes- blood glucose is overall stable, but due to his renal function, it would be best to avoid Metformin- will discontinue this and give a trial of Amarly * CKD- stable * HTN- blood pressure is stable * COPD- stable * IRAM- stable continue nocturnal CPAP * Encourage ambulation, and oral intake.
--- NOTE | 2018-04-28 19:47 | PRG ---
DATE OF SERVICE: 04/28/2018 This is a cross coverage for Dr. Akin Hartmann. SUBJECTIVE: Mr. Osvaldo Rizo is a 77-year-old male hospitalized with abdominal pain, cholan gitis and abnormal LFTs. The patient underwent a laparoscopic cholecystectomy by Dr. Noonan and had a cholangiogram. The cholangiogram does not show any common bile duct stone. He is doing well excep t for the soreness over the op site. He has no nausea. He is not passing any flatus or having any b owel movements. His abdomen is mildly sore. PHYSICAL EXAMINATION: GENERAL: He appears very comfortable. He is sitting in a chair. VITAL SIGNS: Stable, afebrile, pulse is 91, blood pressure 133/73. He is icteric. CARDIOVASCULAR: Lungs within normal limits. ABDOMEN: Distended and firm. Abdomen is mildly tender. LABORATORY DATA: From today shows WBC 9900, hemoglobin 10.5, hematocrit 32.1, platelet count 125,000 . LFTs, bilirubin down to 3.6, AST and ALT is trending down, but not normalized. Alkaline phosphata se 173. RECOMMENDATIONS: 1. Diet as tolerated. 2. Try Dulcolax suppositories to help him to bowel function.
[2018-04-28] MEDS: Enoxaparin Sodium 40 MG/0.4 ML SYRINGE SC SCH (21:07)
[2018-04-29] MEDS: Mometasone/Formoterol 120 PUFF INHALER INH SCH ×2 (07:21→18:49)
[2018-04-29] MEDS: Ketorolac Tromethamine 0.5% Ophth Soln 3 ml Bottle EA EYE SCH ×3 (08:35→20:33)
[2018-04-29] MEDS: Fish Oil 1,000 MG CAP PO SCH ×2 (08:36→20:11)
[2018-04-29] MEDS: Atorvastatin Calcium 40 MG TAB PO SCH (08:36)
[2018-04-29] MEDS: Polyethylene Glycol 3350 17 GM Packet PO SCH (08:36)
[2018-04-29] MEDS: Aspirin 81 mg Enteric Coated Tablet PO SCH (08:37)
[2018-04-29] MEDS: Multivitamin W/ Minerals 1 TAB PO SCH (08:37)
[2018-04-29] MEDS: Ubidecarenone 50 MG CAP PO SCH (08:37)
[2018-04-29] MEDS: Glimepiride 2 MG TAB PO SCH (08:38)
[2018-04-29] MEDS: Febuxostat 40 MG TAB PO SCH (08:39)
[2018-04-29] MEDS: Torsemide 100 MG TAB PO SCH (09:54)
--- NOTE | 2018-04-29 13:08 | PDOC.PN ---
- Subjective Encounter Start Date: 04/29/18 Encounter Start Time: 13:06 Mr. Rizo was seen today in follow-up of medical management following Lap- ritchie. He says he has been passing gas, but has not had a bowel movement yet. His appetite is still poor. He denies nausea or vomiting. He denies abdominal pain. He has noted some dyspnea. - Objective Resuscitation Status: Resuscitation Status FULL:Full Resuscitation MAR Reviewed: Yes Vital Signs & Weight: Vital Signs (12 hours) Temp Pulse Resp BP Pulse Ox 04/29/18 11:31 97.9 F 112 H 20 111/58 L 91 L 04/29/18 08:00 94 L 04/29/18 07:42 97.8 F 101 H 18 151/80 H 94 L 04/29/18 07:21 100 20 98 04/29/18 07:12 98 04/29/18 07:09 100 20 98 04/29/18 04:00 97.9 F 100 18 149/78 H 94 L Weight Weight 264 lb I&O: 04/28/18 04/29/18 04/30/18 06:59 06:59 06:59 Intake Total 2297 360 Balance 2297 360 Result Diagrams: 04/28/18 05:32 04/28/18 05:32 Additional Labs: Accuchecks 04/29/18 04/29/18 04/28/18 11:30 05:44 20:55 POC Glucose 165 H 160 H 185 H 04/28/18 16:08 POC Glucose 171 H Phys Exam - Physical Examination HEENT: PERRLA Respiratory: no wheezing, no rales, no rhonchi, clear to auscultation bilateral Cardiovascular: RRR, no significant murmur, no rub Tachycardic Gastrointestinal: soft, non-tender + mild distention, hypoactive bowel sounds Musculoskeletal: edema present trace pedal edema Neurological: non-focal, moves all 4 limbs Dx/Plan (1) Diabetes type 2, controlled Code(s): E11.9 - TYPE 2 DIABETES MELLITUS WITHOUT COMPLICATIONS Status: Chronic (2) S/P laparoscopic cholecystectomy Code(s): Z90.49 - ACQUIRED ABSENCE OF OTHER SPECIFIED PARTS OF DIGESTIVE TRACT Status: Acute (3) CKD (chronic kidney disease) stage 3, GFR 30-59 ml/min Code(s): N18.3 - CHRONIC KIDNEY DISEASE, STAGE 3 (MODERATE) Status: Chronic (4) COPD (chronic obstructive pulmonary disease) Status: Chronic (5) Gout Code(s): M10.9 - GOUT, UNSPECIFIED Status: Chronic (6) Hypertension Code(s): I10 - ESSENTIAL (PRIMARY) HYPERTENSION Status: Chronic (7) IRAM on CPAP Code(s): G47.33 - OBSTRUCTIVE SLEEP APNEA (ADULT) (PEDIATRIC); Z99.89 - DEPENDENCE ON OTHER ENABLING MACHINES AND DEVICES Status: Chronic - Plan * DM- his medication has been changed to Amaryl. His blood glucose is in acceptable range * HTN- blood pressure is stable * COPD- continue Dulera, as well as Duonebs PRN. * CKD- stable * post Lap-Ritchie- awaiting for improved bowel function- continue to ambulate, and suppositories and neostigmine have been ordered
--- NOTE | 2018-04-29 14:18 | PRG ---
DATE OF SERVICE: 04/29/2018 PRIMARY SURGEON: Dr. Royce Noonan. ROUNDING PHYSICIAN: Dr. Rubén Espinal. SUBJECTIVE: Mr. Rizo is doing well, but is bloated today. He is not having bowel movements or pas sing much flatus; however, he is tolerating some oral intake. Mild abdominal pain reported, but he i s sitting up in bed and he has ambulated today. OBJECTIVE DATA: VITAL SIGNS: Temperature is 97.9, blood pressure 111/58, heart rate is 101, respiratory rate is 18. He is 94% on 2 liters of oxygen nasal cannula. GENERAL: A 77-year-old male sitting up in bed. HEENT: Normocephalic, atraumatic. Trachea midline. NECK: No JVD is appreciated. RESPIRATORY: Coarse bilateral breath sounds, clear to auscultation bilaterally. CARDIOVASCULAR: Tachycardia rhythm regular. ABDOMEN: Protuberant, large and distended. MUSCULOSKELETAL: Moves extremities. NEUROLOGIC: Alert and oriented to person, place, time, and event. SKIN: Section, warm and dry. LABORATORY DATA: From today, has a glucose of 165. There is no CBC or CMP noted from today. They h ave been improving throughout his hospital stay. ASSESSMENT AND PLAN: 1. Cholestasis. Continue to monitor. The patient does still have a protuberant abdomen, is not pas sing flatus or having bowel movements. Likely he is developing an adynamic ileus. Had been encourag ed ambulation. We have also talked to pharmacy and we are going to start neostigmine 0.5 mg subcu q. 6 hours at this time. We will repeat CBC and CMP for tomorrow morning. 2. Chronic kidney disease, improving. 3. Adynamic ileus. We will treat with neostigmine as above. 4. Diabetes. On the diabetic diet. Continue to monitor glucose. 5. Mild hypoxemia on 2 liters oxygen nasal cannula at this time. I have encouraged IS at the patien t's bedside. No signs of infectious etiology at this time. 6. Continue all other supportive care. 7. Continue to monitor. 8. Discharge planning ensuing days as patient's bowels do continue to improve. The patient was seen with Dr. Rubén Espinal. I have updated the patient and the patient's family at the bedside, it can be updated as needed.
[2018-04-29] MEDS ORDERED: Hydrocortisone Acetate 25 MG Suppository PR PRN (16:03)
--- NOTE | 2018-04-29 17:34 | PRG ---
DATE OF SERVICE: 04/29/2018 HISTORY OF PRESENT ILLNESS: Mr. Osvaldo Rizo is a 77-year-old male who has had abdominal pa in, abnormal LFTs and gallstones and also symptoms suggestive of cholangitis. He underwent laparosco py, cholecystectomy and cholangiogram by Dr. Noonan. The cholangiogram showed no gallstones. It was felt that his liver function infection. He does not have any abdominal pain or nausea. Howev er, he has poor appetite, does not feel like eating a whole lot. There are no liver function tests d one today, but however, yesterday, LFTs showed some trending down of the liver function tests. He soto s been passing small amount of gas today. poor appetite. He has no other complaints. PHYSICAL EXAMINATION: GENERAL: He is obese, appears comfortable. VITAL SIGNS: Stable, temperature 97.8 degrees Fahrenheit, pulse is 101, blood pressure is 151/80. HEENT: Mildly icteric. LUNGS: Within normal limits. ABDOMEN: Softer, but still distended. Abdomen is mildly tender over the upper abdomen. Bowel sound s are hyperactive. RECOMMENDATIONS: 1. Increase p.o. intake. 2. Continue present treatment. 3. Follow LFTs tomorrow.
[2018-04-29] MEDS: Enoxaparin Sodium 40 MG/0.4 ML SYRINGE SC SCH (20:11)
[2018-04-30 05:59] LABS: ALT (SGPT) 224 U/L (8-55); AST (SGOT) 103 U/L (5-34); Albumin 3.2 g/dL (3.4-4.8); Alkaline Phosphatase 299 U/L (40-150); Anion Gap 16 mmol/L (10-20); BUN (Urea Nitrogen) 32 mg/dL (8.4-25.7); Bilirubin, Total 2.9 mg/dL (0.2-1.2); Calc. Creatinine Clearance 54 mL/min (70-130); Carbon Dioxide 25 mmol/L (23-31); Cardiac Risk 6.4 (Less than 4.5); Chloride 97 mmol/L (98-107); Cholesterol 116 mg/dl (< 200 Desired); Estimated GFR-MDRD 35; Globulin 3.7 g/dL (2.4-3.5); Glucose 119 mg/dL (83-110); HDL Cholesterol 18 mg/dL (>60 Neg Risk); LDL Cholesterol, Calculated 60 mg/dL; Potassium 3.6 mmol/L (3.5-5.1); Protein, Total 6.9 g/dL (5.8-8.1); Sodium 134 mmol/L (136-145); Triglycerides 190 mg/dL (Less than 150)
[2018-04-30 06:08] LABS: Hemoglobin 10.2 g/dL (14.0-18.0); Hypochromia SLIGHT = 6-15 cells (100X) (0-5/hpf); Lymphocytes 21 % (21-51); MDiff Complete? YES; Mean Corpuscular HGB CONC 33.4 g/dL (32.0-36.0); Mean Corpuscular Hemoglobin 32.1 pg (27.0-31.0); Mean Corpuscular Volume 96.2 fL (78.0-98.0); Mean Platelet Volume 8.8 fL (7.4-10.4); Monocytes 1 % (0-10); Neutrophil 78 % (42-75); PLT Morphology Comment Appears Adequate; Platelet Count 154 thou/uL (130-400); RBC Distribution Width 12.3 % (11.5-14.5); Red Blood Cell (RBC) Count 3.17 mill/uL (4.70-6.10); White Blood Cell (WBC) Count 12.4 thou/uL (4.8-10.8)
[2018-04-30] MEDS: Mometasone/Formoterol 120 PUFF INHALER INH SCH (07:13)
[2018-04-30] MEDS: Torsemide 100 MG TAB PO SCH (08:08)
[2018-04-30] MEDS: Multivitamin W/ Minerals 1 TAB PO SCH (08:10)
[2018-04-30] MEDS: Glimepiride 2 MG TAB PO SCH (08:10)
[2018-04-30] MEDS: Ubidecarenone 50 MG CAP PO SCH (08:10)
[2018-04-30] MEDS: Fish Oil 1,000 MG CAP PO SCH (08:10)
[2018-04-30] MEDS: Aspirin 81 mg Enteric Coated Tablet PO SCH (08:11)
[2018-04-30] MEDS: Febuxostat 40 MG TAB PO SCH (08:11)
[2018-04-30] MEDS: Atorvastatin Calcium 40 MG TAB PO SCH (08:11)
[2018-04-30] MEDS: Polyethylene Glycol 3350 17 GM Packet PO SCH (08:12)
[2018-04-30] MEDS: Ketorolac Tromethamine 0.5% Ophth Soln 3 ml Bottle EA EYE SCH (08:12)
[2018-04-30 11:49] VITALS: BP 159/81; TEMP 97.8
--- NOTE | 2018-04-30 11:49 | PRG ---
DATE OF SERVICE: 04/30/2018 Osvaldo Rizo Jr. is doing much better today. He had a bowel movement. He denies having any nausea an d vomiting. He is tolerating his diet. PHYSICAL EXAMINATION: LUNGS: Clear to auscultation. CARDIAC: Regular rate and rhythm without murmur. ABDOMEN: Soft, nontender. Surgical wound looks good. LABORATORY: This morning his hemoglobin is 10, white count 12.4. His BUN and creatinine are stable at 32 and 1.8, consistent with his chronic kidney disease. Liver function tests have improved. Bili mchugh has decreased to 2.9. ASSESSMENT AND PLAN: Cholestasis, improved. This may be multifactorial, could be due to right heart failure due to sleep apnea combined with cholecystitis. Pathology from his cholecystectomy reveals acute and chronic cholecystitis and more likely this is a response for cholestasis. Plan is to disch arge home today. Tylenol for pain. He is to avoid NSAIDs due to his chronic kidney disease. He felecia l follow up in my office in 2-3 weeks. Diet and activity as tolerated. No activity restrictions.
--- NOTE | 2018-04-30 12:45 | DIS ---
DATE OF ADMISSION: 04/25/2018 DATE OF DISCHARGE: 04/30/2018 DISCHARGE DIAGNOSES: Acute cholecystitis, acalculous, sleep apnea, diabetes mellitus, chronic kidney disease, history of prostate cancer with prostatectomy, and disabled sphincter. Colonoscopy last ye ar was normal according to the patient, chronic obstructive pulmonary disease. PROCEDURES DURING THIS HOSPITALIZATION: CT scan of abdomen and pelvis in [place]. Ultrasound of a bdomen locally. FOLLOWUP: With Dr. Noonan in 2-3 weeks. DIET AND ACTIVITY: As tolerated. Diabetic diet. Resume CPAP for sleep apnea. CONSULTATIONS/HOSPITALIZATION: Gastroenterology, Dr. Hartmann and Dr. Celaya, Pulmonary Medicine, [facility]. HISTORY: A 77-year-old male who presented with nausea to [place], found to have abnormal liver fun ction test, although it was not too tender and did not have much pain, revealed a distended gallbladd er with polyposis, cholecystic fluid, and elevated liver function tests. He was transferred to [facility]. Ultrasound revealed a distended gallbladder and 8.6 mm bile duct. Liver function te sts were elevated to 3.2, increased to 3.6 with increased transaminases the next day. He underwent a viral hepatitis profile which was negative. Dr. Hartmann saw him in consultation. He was taken to the operating room for laparoscopic cholecystectomy. Cholangiograms were normal, a dilated bile du ct. Postoperatively, he was maintained on IV antibiotics. Liver function test improved. It was det ermined that he did have chronic kidney disease. He admits past history of elevated BUN and creatini ne, these have been followed. He is at his baseline levels at this time more than likely. He was se nt home to resume his home medications; tramadol, Tylenol, Uloric acid, aspirin, lactulose daily, Dem adex 50 mg daily p.r.n., Spiriva HandiHaler p.r.n., clonidine 0.1 mg p.o. t.i.d. p.r.n., metformin 50 0 b.i.d., atorvastatin 40 mg a day. A 77-year-old male with the above history, underwent the above workup and laparoscopic cholecystectom y and convalesced to regain GI function. Sent home with Tylenol for pain, Ultram if needed. Resume home medications.
--- NOTE | 2018-05-01 00:36 | DIS ---
DATE OF ADMISSION: 04/25/2018 DATE OF DISCHARGE: 04/30/2018 PRIMARY CARE PHYSICIAN: Dr. Harjinder Aguilar. DISCHARGE DISPOSITION: Home. PRIMARY DISCHARGE DIAGNOSES: 1. Acute acalculous cholecystitis. 2. iabetes mellitus, type 2. 3. Chronic kidney disease, stage 3. 4. Obstructive sleep apnea. 5. Chronic obstructive pulmonary disease. 6. Morbid obesity with a BMI of 36. DISCHARGE MEDICATIONS: Include Amaryl 2 mg p.o. daily, metformin was discontinued due to renal insuf ficiency. He is to continue tramadol 50 mg q.6 hours as needed, CoQ10 of 200 mg daily, tramadol 50 to 100 mg q.4 hours as needed, Demadex 50 mg p.r.n., Spiriva 18 mcg inhaled daily, nitroglycerin 0.4 sublingual p.r.n., Lutein multivitamins once daily, lactulose 15 mg twice a day as needed, Ulor ic 40 mg daily, clonidine 0.1 mg t.i.d. p.r.n., Lipitor 40 mg daily, aspirin 81 mg daily, alpha lipoi c acid 200 mg twice a day, and Tylenol 500 mg as needed. PROCEDURES DONE DURING ADMISSION: The patient had a laparoscopic cholecystectomy. CODE STATUS: FULL CODE. ALLERGIES: CELEBREX and CLINDAMYCIN. HOSPITAL COURSE: Mr. Rizo is a pleasant 77-year-old gentleman who presented to the emergency room with complaints of sepsis-like syndrome. He also had elevated liver function test with bilirubin of 2.2, elevated transaminases, and an elevated alkaline phosphatase. There was concern that he could h ave some type of gallbladder pathology, despite the abdominal ultrasound having no visible gallstones ; however, it was noted on the ultrasound that his common bile duct was slightly prominent for his ag e. The patient had a hepatobiliary scan showing nonvisualization of the gallbladder and the patient was taken to laparoscopic cholecystectomy. Postoperatively, the patient had some mild respiratory di stress and elevated blood pressure. For this reason, his hydrochloric area supervisor was consulted as well as the hospitalist team. He was placed back on his usual medications for his COPD including the long-acting inhaled beta agonist as well as DuoNebs. It was noted that the patient's GFR was 35 and for this re ason, we changed metformin to Amaryl. Once the patient's bowel function improved and he was ambulato ry and tolerating a solid diet and the patient was discharged on 04/30/2018.
[2018-05-01] MEDS ORDERED: Ibuprofen 600 MG TAB PO PRN (22:00)
--- NOTE | 2018-05-02 12:26 | PQF ---
[employer] Fe[employer] Crystal Reports Winform ViewerCARMARTINEZ, ONIEL ZAMAN MD [id number] [place] [id number] CLINICAL DOCUMENTATION CLARIFICATION FORM: POST DISCHARGE Please check appropriate box(s) to clarify if the following diagnosis has been ruled in or ruled out: Sepsis [ X] Ruled in diagnosis [ X] Continue to treat [ ] Resolved [ ] Ruled out diagnosis [ ] Cannot rule out diagnosis [ ] Other diagnosis [ ] Unable to determine In addition, please specify: Present on Admission (POA): [ X] Yes [ ] No [ ] Unable to determine CLINICAL INDICATORS - SIGNS / SYMPTOMS / LABS 04/25/18 Positive E Coli blood culture 04/27/18 Progress Note "Cholestasis-- I think this is probably more related to the patient's underlying sepsis...." Vital signs on admission H&P Heart Rate 94 bpm, Temperature 37.9 respiratory rate 18, Blood pressure 114/62 RISK FACTORS Infection/Bacteremia Advancing Age TREATMENTS IV fluids IV Antibiotics broad spectrum (This form is maintained as a part of the permanent medical record) 2014 [employer]. All Rights Reserved [email or web address] [email or web address] [phone] [email or web address]
== END 2018-04-30 11:55 | disposition home or self-care (01) | DRG 853 ==
LOC: ERS 19:01 → SJJU 23:21 → OBSVTOIN 23:21 → IMCU/EMU 04-26 20:25 → SURG B 04-27 11:02
PROVIDERS: ADMIT Specialist; ATTEND Specialist
PROC: 0FT44ZZ Resection of Gallbladder, Percutaneous Endoscopic Approach (ICD-10-PCS; principal; 2018-04-26)
PROC: BF101ZZ Fluoroscopy of Bile Ducts using Low Osmolar Contrast (ICD-10-PCS; 2018-04-26)
DX: A41.51 Sepsis due to Escherichia coli [E. coli] (principal); K83.1 Obstruction of bile duct; K81.0 Acute cholecystitis; N17.9 Acute kidney failure, unspecified; K56.7 Ileus, unspecified; I25.10 Atherosclerotic heart disease of native coronary artery without angina pectoris; J44.9 Chronic obstructive pulmonary disease, unspecified; K81.1 Chronic cholecystitis; M10.9 Gout, unspecified; D69.6 Thrombocytopenia, unspecified; G47.33 Obstructive sleep apnea (adult) (pediatric); E11.22 Type 2 diabetes mellitus with diabetic chronic kidney disease; I12.9 Hypertensive chronic kidney disease with stage 1 through stage 4 chronic kidney disease, or unspecified chronic kidney disease; E78.5 Hyperlipidemia, unspecified; N18.3 Chronic kidney disease, stage 3 (moderate); I25.2 Old myocardial infarction; G47.30 Sleep apnea, unspecified; E66.01 Morbid (severe) obesity due to excess calories; Z68.36 Body mass index [BMI] 36.0-36.9, adult; Z87.891 Personal history of nicotine dependence; Z85.46 Personal history of malignant neoplasm of prostate; Z95.5 Presence of coronary angioplasty implant and graft; Z88.1 Allergy status to other antibiotic agents; Z88.8 Allergy status to other drugs, medicaments and biological substances; Z79.84 Long term (current) use of oral hypoglycemic drugs; Z79.82 Long term (current) use of aspirin
CPT/HCPCS: 36415; 36416; 47532; 71046; 76705; 78226; 80053; 80061; 80074; 81001; 82570; 84156; 84300; 84443; 85025; 85610; 85730; 88304; 93005; 93010; 94640; 94660; A9537; G8978-GP-CI; G8979-GP-CI; G8980-GP-CI; J0131; J0670; J1610; J1650; J2001; J2405; J2543; J2704; J2710; J3010; J7050; J7620; Q9961; S0028